=== PATIENT | female | born 2000 | race Caucasian/White ===

== ENCOUNTER 2020-07-20 03:43 | Emergency (ER) | payer OTHER ==
[2020-07-20] MEDS ORDERED: Ketorolac Tromethamine 30 MG/ML VIAL ONE (03:59)
== END 2020-07-20 04:43 | disposition home or self-care (01) ==
LOC: NAV ERS 03:43
DX: M16.12 Unilateral primary osteoarthritis, left hip (principal)
CPT/HCPCS: 96374; J1885

== ENCOUNTER 2021-05-30 11:33 | Emergency (ER) | payer MEDICAID, OTHER ==
[2021-05-30] MEDS ORDERED: Ondansetron ODT 4 MG TAB ONE (12:45)
== END 2021-05-30 13:03 | disposition home or self-care (01) ==
LOC: NAV ERS 11:33
DX: T71.9XXA Asphyxiation due to unspecified cause, initial encounter (principal); S00.83XA Contusion of other part of head, initial encounter; S10.93XA Contusion of unspecified part of neck, initial encounter; R11.0 Nausea; Y04.2XXA Assault by strike against or bumped into by another person, initial encounter
CPT/HCPCS: 99283; Q0162

== ENCOUNTER 2021-08-11 09:10 | Emergency (ER) | payer OTHER, SELFPAY ==
[2021-08-11] MEDS ORDERED: predniSONE 20 MG TAB ONE (09:36)
== END 2021-08-11 09:44 | disposition home or self-care (01) ==
LOC: NAV ERS 09:10
DX: J02.9 Acute pharyngitis, unspecified (principal)
CPT/HCPCS: 87081; 87430; 99283; J7512